=== PATIENT | male | born 1985 | race Caucasian/White ===

== ENCOUNTER 2017-05-10 12:25 | Emergency (ER) | payer OTHER, SELFPAY | END 2017-05-10 12:59 | disposition home or self-care (01) | LOC: BURERS 12:25 | DX: L72.3 Sebaceous cyst (principal) | CPT/HCPCS: 99283 ==

== ENCOUNTER 2018-09-27 07:50 | Emergency (ER) | payer OTHER, SELFPAY ==
[2018-09-27] MEDS ORDERED: Fluorescein Opthalmic Strip ONE (08:03)
[2018-09-27] MEDS ORDERED: Adacel (T-DAP) 0.5 ML SYRINGE ONE (09:14)
== END 2018-09-27 09:26 | disposition home or self-care (01) ==
LOC: BURERS 07:50
DX: T15.01XA Foreign body in cornea, right eye, initial encounter (principal); Z23 Encounter for immunization; W89.0XXA Exposure to welding light (arc), initial encounter
CPT/HCPCS: 65220; 90471; 90715

== ENCOUNTER 2020-02-09 18:12 | Emergency (ER) | payer OTHER, SELFPAY ==
[2020-02-09] MEDS ORDERED: Sulfameth/Trimethoprim DS 800-160mg TAB ONE (18:27)
== END 2020-02-09 18:40 | disposition home or self-care (01) ==
LOC: BURERS 18:12
DX: S80.862A Insect bite (nonvenomous), left lower leg, initial encounter (principal); L08.9 Local infection of the skin and subcutaneous tissue, unspecified; W57.XXXA Bitten or stung by nonvenomous insect and other nonvenomous arthropods, initial encounter
CPT/HCPCS: 99282